=== PATIENT | male | born 2000 | race Two or more races ===

== ENCOUNTER 2019-08-20 23:02 | Emergency (ER) | payer OTHER ==
[~2019-08-20] VITALS: Ht 167.6 cm; Wt 77.1 kg
[2019-08-21 01:53] VITALS: BP 125/71
[2019-08-21] MEDS ORDERED: FLUORESCEIN SOD 1 MG TEST STRIP EACHEYE ONE (02:00)
[2019-08-21] MEDS ORDERED: TETRACAINE HCL 0.5% OPTH(EYE) SOLN 4ML EACHEYE ONE (02:00)
== END 2019-08-21 02:36 | disposition home or self-care (01) ==
LOC: ER 23:02
DX: T15.91XA Foreign body on external eye, part unspecified, right eye, initial encounter (principal); H16.001 Unspecified corneal ulcer, right eye; X58.XXXA Exposure to other specified factors, initial encounter; Y93.89 Activity, other specified; Y92.89 Other specified places as the place of occurrence of the external cause; Y99.8 Other external cause status
CPT/HCPCS: 65222

== ENCOUNTER 2024-05-08 01:39 | Emergency (ER) | payer OTHER ==
[~2024-05-08] VITALS: Ht 167.6 cm; Wt 88.0 kg
[2024-05-08 01:51] VITALS: BP 159/97; PULSE 89; RESP 18; TEMP 97.8; O2SAT 98
[2024-05-08] MEDS: TETANUS-DIPTH-ACEL PERTUSSIS 0.5ML SYR Tdap IM ONE (02:00)
[2024-05-08] MEDS ORDERED: CEPH500C PO (02:13)
[2024-05-08] MEDS ORDERED: PRED20TA2 PO (02:13)
== END 2024-05-08 02:20 | disposition home or self-care (01) ==
LOC: ER 01:39
DX: S80.862A Insect bite (nonvenomous), left lower leg, initial encounter (principal); Z79.52 Long term (current) use of systemic steroids; W57.XXXA Bitten or stung by nonvenomous insect and other nonvenomous arthropods, initial encounter; Y93.89 Activity, other specified; Y92.89 Other specified places as the place of occurrence of the external cause; Y99.8 Other external cause status
CPT/HCPCS: 90471; 90715

== ENCOUNTER 2024-12-25 06:10 | Emergency (ER) | payer OTHER ==
[~2024-12-25] VITALS: Ht 167.6 cm; Wt 85.6 kg
[~2024-12-25 06:10] MED LIST: CEPH500C PO; PRED20TA2 PO; ZOFR4T PO
--- NOTE | 2024-12-25 06:32 | ECG ---
[facility] Test Date: 2024-12-25 Test Time: 06:26:46 Pat Name: GILBERT ROMO Department: ED Room: Gender: M Booky: TRAVIS : 2000 Requested By: SHI BALDERAS Order Number: [id number] Reading MD: Ronny Nicholson Measurements Intervals [place] Rate: 69 P: 57 IN: 160 QRS: 70 QRSD: 96 T: 37 QT: 355 QTc: 381 Interpretive Statements Sinus rhythm Electronically Signed On 12-28-2024 22:11:22 PDT by Ronny Nicholson Please click the below link to view image of tracing.
--- NOTE | 2024-12-25 07:01 | ED.PDOC ---
HPI Comments 24 y/o M, with no prior medical history presents to the ED for CC of chest pain. Patient states, he has been experiencing intermittent substernal chest pain that radiates into his right shoulder onset, x8 months. Patient reports, associated symptoms of abdominal pain with nausea and vomiting. Patient denies shortness of breath, palpitations, headache, or dizziness. No other symptoms or modifying factors present at this time. Chief Complaint: Chest Pain Time Seen by MD: 06:20 Primary Care Provider: UNKNOWN Reviewed Notes: Nurses Notes, Medications, Allergies Allergies: Coded Allergies: NO KNOWN ALLERGIES (Unverified , 08/20/19) Home Meds Active Scripts Ondansetron Odt 4MG Tab (ZOFRAN PO) 4 Mg Tb, 4 MG PO Q8HP PRN for 5 Days, #15 TAB ODT TAB-DISSOLVE IN MOUTH, THEN SWALLOW Prov:RAVINDER DEUTSCH MD 09/25/24 Prednisone (Prednisone) 20 Mg Tab, 20 MG PO BID for 5 Days, #10 TAB 0 Refills Prov:SEBASTIÁN VASQUEZ 05/08/24 Cephalexin Monohydrate (Cephalexin) 500 Mg Cap, 1 CAP PO BID for 7 Days, #14 CAP 0 Refills Prov:SEBASTIÁN VASQUEZ 05/08/24 Information Source: Patient Mode of Arrival: Ambulatory Severity: Moderate Timing: Months Duration: Intermittent Location: Substernal Radiation: Shoulder (R) Onset: At Rest Cardiac Risk Factors: None PE Risk Factors: None History of: None Modifying Factors: Nothing Associated Signs and Symptoms: N/V Past Medical History PAST MEDICAL HISTORY: Denies Surgical History: Denies all surgeries Family History Family History: Unknown Social History Smoker: Non-Smoker Alcohol: Denies ETOH Use Drugs: Denies Drug Use Lives In: Home Constitutional: denies: chills, diaphoresis, fatigue, fever, malaise, sweats, weakness, others EENTM: denies: blurred vision, double vision, ear bleeding, ear discharge, ear drainage, ear pain, ear ringing, eye pain, eye redness, hearing loss, mouth pain, mouth swelling, nasal discharge, nose bleeding, nose congestion, nose pain, photophobia, tearing, throat pain, throat swelling, voice changes, others Respiratory: denies: cough, hemoptysis, orthopnea, SOB at rest, shortness of breath, SOB with excertion, stridor, wheezing, others Cardiovascular: reports: chest pain; denies: dizzy spells, diaphoresis, Dyspnea on exertion, edema, irregular heart beat, left arm pain, lightheadedness, palpitations, PND, syncope, others Gastrointestinal: reports: abdominal pain, nausea, vomiting; denies: abdomen distended, blood streaked bowels, constipated, diarrhea, dysphagia, difficulty swallowing, hematemesis, melena, poor appetite, poor fluid intake, rectal bleeding, rectal pain, others Genitourinary: denies: burning, dysuria, flank pain, frequency, hematuria, incontinence, penile discharge, penile sore, pain, testicle pain, testicle swelling, urgency, others Neurological: denies: dizziness, fainting, headache, left sided numbness, left sided weakness, numbness, paresthesia, pre-existing deficit, right sided numbness, right sided weakness, seizure, speech problems, tingling, tremors, weakness, others Musculoskeletal: denies: back pain, gout, joint pain, joint swelling, muscle pain, muscle stiffness, neck pain, others Integumetry: denies: bruises, change in color, change in hair/nails, dryness, laceration, lesions, lumps, rash, wounds, others Allergic/Immunocompromised: denies: Difficulty Healing, Frequent Infections, Hives, Itching, others Hematologic/Lymphatic: denies: anemia, blood clots, easy bleeding, easy bruising, swollen glands, others Endocrine: denies: excessive hunger, excessive sweating, excessive thirst, excessive urination, flushing, intolerance to cold, intolerance to heat, unexplained weight gain, unexplained weight loss, others Psychiatric: denies: anxiety, bipolar disorder, depression, hopeless, panic disorder, schizophrenia, sleepless, suicidal, others All Other Systems: Reviewed and Negative Physical Exam General Appearance: Moderate Distress HEENT: Normal ENT Inspection, Pharynx Normal, TMs Normal Neck: Full Range of Motion, Non-Tender, Normal, Normal Inspection Respiratory: Chest Non-Tender, Lungs Clear, No Accessory Muscle Use, No Respiratory Distress, Normal Breath Sounds Cardiovascular: No Edema, No JVD, No Murmur, No Gallop, Normal Peripheral Pulses, Regular Rate/Rhythm Breast Exam: Deferred Gastrointestinal: No Organomegaly, Non Tender, No Pulsatile Mass, Normal Bowel Sounds, Soft Genitalia: Deferred Pelvic: Deferred Rectal: Deferred Extremities: No calf tenderness, Normal capillary refill, Normal inspection, Normal range of motion, Non-tender, No pedal edema Musculoskeletal : Apperance: Normal Neurologic: Alert, 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 Was a procedure done?: No CP Differential Dx Differential Diagnosis: A-fib, A-Flutter, Angina, Anxiety / Panic Attack, Atrial Dysrhythmia, Electrolyte Disorder Differential Diagnosis: Chest Wall Pain, Costochondritis, Esophageal reflux/spasm, Gastritis X-Ray, Labs, Meds, VS Vital Signs Date Time Temp Pulse Resp B/P (MAP) Pulse Ox O2 Delivery O2 Flow Rate FiO2 12/25/24 06:32 97.6 87 16 143/83 (103) 98 97.6 12/25/24 06:32 69 Lab Test 12/25/24 06:37 Range/Units Troponin I High Sensitivity 24 </=54 ng/L Patient alert. Came in because of chest pain. Cardiac marker within normal limits. Vitals stable. Answering questions. EKG reviewed does not show any acute changes. Possible stress-induced. No leg swelling. No shortness a breath. No discoloration. Does not meet any criteria. Explained to the patient. Was told to follow up with his primary care physician. Was told to come back if there is any problem. Time of 1ST Reevaluation: 06:50 Reevaluation 1ST: Improved Patient Education/Counseling: Diagnosis, Treatment Family Education/Counseling: No Family Present Departure 1 Departure Time of Disposition: 07:17 Impression: Primary Impression: Musculoskeletal chest pain Additional Impression: Anxiety Disposition: 01 HOME / SELF CARE / HOMELESS Condition: Good Discharged With: Self Critical Care Note Critical Care Time?: No Stability Stability form required: No Heart Score Heart Score: Heart Score Response (Comments) Value History Slightly Suspicious 0 EKG Normal 0 Age <45 0 Risk Factors No known risk factors 0 Troponin Normal limit 0 Total 0 I personally scribed for SHI BALDERAS MD ([email or web address]) on 12/25/24 at 07:01. Electronically submitted by Carie Arvizu ([email or web address]). SHI BALDERAS MD December 25, 2024 07:01
[2024-12-25 09:00] VITALS: BP 114/84; PULSE 82; RESP 13; TEMP 98.6; O2SAT 97
== END 2024-12-25 09:10 | disposition home or self-care (01) ==
LOC: ER 06:10
DX: F41.9 Anxiety disorder, unspecified (principal); R07.2 Precordial pain; Z79.52 Long term (current) use of systemic steroids; Z79.899 Other long term (current) drug therapy
CPT/HCPCS: 36415; 84484; 93005